=== PATIENT | female | born 2000 | race African-American/Black ===

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

== ENCOUNTER 2022-08-13 10:12 | Emergency (ER) | payer MEDICAID ==
[~2022-08-13] VITALS: Ht 170.2 cm; Wt 59.9 kg
[2022-08-13 10:30] VITALS: BP 106/58
[2022-08-13] MEDS ORDERED: NAPR-681 PO (12:22)
== END 2022-08-13 12:59 | disposition home or self-care (01) ==
LOC: ER 10:12
DX: S93.402A Sprain of unspecified ligament of left ankle, initial encounter (principal); J45.909 Unspecified asthma, uncomplicated; X58.XXXA Exposure to other specified factors, initial encounter; Y93.89 Activity, other specified; Y92.89 Other specified places as the place of occurrence of the external cause; Y99.8 Other external cause status
CPT/HCPCS: 73610; 81025; 99283

== ENCOUNTER 2024-04-06 09:42 | Emergency (ER) | payer MEDICAID, OTHER ==
[~2024-04-06] VITALS: Ht 172.7 cm; Wt 70.0 kg
[~2024-04-06 09:42] MED LIST: NAPR-681 PO
[2024-04-06 09:45] VITALS: BP 117/84; PULSE 84; RESP 18; TEMP 36.8; O2SAT 99
== END 2024-04-06 13:09 | disposition left against medical advice (07) ==
LOC: ER 09:42
DX: R11.2 Nausea with vomiting, unspecified (principal); Z53.21 Procedure and treatment not carried out due to patient leaving prior to being seen by health care provider